=== PATIENT | female | born 1985 | race Caucasian/White ===

== ENCOUNTER 2017-12-18 20:19 | Emergency (ER) | payer BC ==
[2017-12-18 20:27] VITALS: BP 157/109
[2017-12-18] MEDS ORDERED: SUDAFED 30M30 MG/TAB PO (20:31)
[2017-12-18] MEDS ORDERED: AUGMENTIN 875-1 EAC1 PO (20:56)
[2017-12-18] MEDS ORDERED: NORCO 10-325 T1 EACH PO (20:56)
== END 2017-12-18 21:05 | disposition home or self-care (01) ==
LOC: ED 20:19
DX: H66.92 Otitis media, unspecified, left ear (principal)
CPT/HCPCS: J1885

== ENCOUNTER 2020-12-20 19:18 | Emergency (ER) | payer BC ==
[~2020-12-20] VITALS: Ht 177.8 cm; Wt 90.9 kg
[~2020-12-20 19:18] MED LIST: AUGMENTIN 875-1 EAC1 PO; NORCO 10-325 T1 EACH PO; SUDAFED 30M30 MG/TAB PO
[2020-12-20] MEDS ORDERED: PHENTERMINE HYD30 MG PO (19:25)
[2020-12-20 22:12] VITALS: BP 131/104
== END 2020-12-20 22:12 | disposition home or self-care (01) ==
LOC: ED 19:18
DX: S93.401A Sprain of unspecified ligament of right ankle, initial encounter (principal); X50.0XXA Overexertion from strenuous movement or load, initial encounter; Y93.02 Activity, running
CPT/HCPCS: L4396

== ENCOUNTER → 2021-09-22 | Outpatient (CLI) | payer BC ==
[~2021-09-22] MED LIST changes: +PHENTERMINE HYD30 MG PO
== END ==
LOC: AMSURD 11:57
DX: I49.9 Cardiac arrhythmia, unspecified (principal)